=== PATIENT | male | born 1950 | race Caucasian/White ===

== ENCOUNTER 2020-03-02 09:46 | Emergency (ER) | payer MEDICARE, OTHER ==
--- NOTE | 2020-03-02 11:24 | EDM.PDOC ---
ED HPI GENERAL MEDICAL PROBLEM - General Chief Complaint: Lower Extremity Injury/Pain Stated Complaint: AFTER KNEE SURGERY ISSUES Time Seen by Provider: 03/02/20 11:15 Source of Information: Reports: Patient History Limitations: Reports: No Limitations - History of Present Illness INITIAL COMMENTS - FREE TEXT/NARRATIVE: This 69 yo male patient reports to the emergency department due to drainage and pain from his right knee. The patient had a knee replacement surgery on 02/26/[address] Chandler with [facility] in [place]. The patient reports the day after surgery, he noticed some drainage to his right knee. The dressing was replaced in the hospital, but after physical therapy the patient noticed an area of bleeding. The patient reports the dressing has been getting more saturated. The patient reports he has also noticed some redness to the knee and increased pain to the area. The patient did have a follow-up appointment scheduled in [place] today, but due to the weather, the patient came to the ED. The patient reports he did have a staff infection in his left knee after he had a scope previously. Onset: Gradual Duration: Day(s): Location: Reports: Lower Extremity, Right Quality: Reports: Ache, Dull Severity: Moderate Improves with: Reports: None Worsens with: Reports: None Context: Reports: Other Associated Symptoms: Reports: No Other Symptoms Right Pain Score (Numeric/FACES): 6 Review of Systems - Review of Systems Review Of Systems: Comprehensive ROS is negative, except as noted in HPI. ED EXAM, GENERAL - Physical Exam Exam: See Below Exam Limited By: No Limitations General Appearance: Alert, WD/WN, Moderate Distress Eye Exam: Bilateral Eye: EOMI, Normal Inspection, PERRL Ears: Normal External Exam, Normal Canal, Hearing Grossly Normal, Normal TMs Nose: Normal Inspection, Normal Mucosa, No Blood Throat/Mouth: Normal Inspection, Normal Lips, Normal Teeth, Normal Gums, Normal Oropharynx, Normal Voice, No Airway Compromise Head: Atraumatic, Normocephalic Neck: Normal Inspection, Supple, Non-Tender, Full Range of Motion Respiratory/Chest: No Respiratory Distress, Lungs Clear, Normal Breath Sounds, No Accessory Muscle Use, Chest Non-Tender Cardiovascular: Normal Peripheral Pulses, Regular Rate, Rhythm, No Edema, No Gallop, No JVD, No Murmur, No Rub GI/Abdominal: Normal Bowel Sounds, Soft, Non-Tender, No Organomegaly, No Distention, No Abnormal Bruit, No Mass (Male) Exam: Deferred Rectal (Males) Exam: Deferred Back Exam: Normal Inspection, Full Range of Motion, NT Extremities: Leg Pain (Right knee (post op) ) Neurological: Alert, Oriented, CN II-XII Intact, Normal Cognition, Normal Gait, Normal Reflexes, No Motor/Sensory Deficits Psychiatric: Normal Affect, Normal Mood Skin Exam: Warm, Dry, Wound/Incision (Wound appears to be healing well with no current drainage. ) Course - Vital Signs Last Recorded V/S: Last Vital Signs Temp 35.6 C L 03/02/20 10:25 Pulse 82 03/02/20 10:25 Resp 14 03/02/20 10:25 BP 153/78 H 03/02/20 10:25 Pulse Ox 98 03/02/20 10:25 - Orders/Labs/Meds Orders: Active Orders 24 hr Category Date Time Status CBC WITH AUTO DIFF [HEME] Stat Lab 03/02/20 11:16 Ordered COMPREHENSIVE METABOLIC PN,CMP [CHEM] Stat Lab 03/02/20 11:16 Ordered CULTURE BLOOD [BC] Stat Lab 03/02/20 11:16 Ordered CULTURE BLOOD [BC] Stat Lab 03/02/20 11:16 Ordered LACTIC ACID [CHEM] Stat Lab 03/02/20 11:16 Ordered Blood Culture x2 Reflex Set [OM.PC] Stat Oth 03/02/20 11:16 Ordered Departure - Departure Time of Disposition: 12:30 Disposition: Home, Self-Care 01 Condition: Fair Clinical Impression: Postoperative pain of right knee - Discharge Information *PRESCRIPTION DRUG MONITORING PROGRAM REVIEWED*: Not Applicable *COPY OF PRESCRIPTION DRUG MONITORING REPORT IN PATIENT LESLIE: Not Applicable Care Plan Goals: The patient and his were advised of the examination and lab results during the visit. The wound dressing was changed during the visit. The patient was encouraged to follow-up with Dr. Chandler for continued evaluation and management. If the patient has any additional symptoms or concerns, the patient should either return to the emergency department or visit his primary care facility. Sepsis Event Note (ED) - Evaluation Sepsis Screening Result: No Definite Risk - Focused Exam Vital Signs: Vital Signs Temp Pulse Resp BP Pulse Ox 03/02/20 10:25 35.6 C L 82 14 153/78 H 98 - My Orders Last 24 Hours: My Active Orders 03/02/20 11:16 CBC WITH AUTO DIFF [HEME] Stat COMPREHENSIVE METABOLIC PN,CMP [CHEM] Stat CULTURE BLOOD [BC] Stat CULTURE BLOOD [BC] Stat LACTIC ACID [CHEM] Stat Blood Culture x2 Reflex Set [OM.PC] Stat - Assessment/Plan Last 24 Hours: My Active Orders 03/02/20 11:16 CBC WITH AUTO DIFF [HEME] Stat COMPREHENSIVE METABOLIC PN,CMP [CHEM] Stat CULTURE BLOOD [BC] Stat CULTURE BLOOD [BC] Stat LACTIC ACID [CHEM] Stat Blood Culture x2 Reflex Set [OM.PC] Stat
[2020-03-02 12:11] LABS: ANION GAP 11.1 mEq/L (7-13); CHLORIDE,CL 104 mmol/L (98-107); SODIUM,NA 140 mmol/L (136-145)
== END 2020-03-02 12:40 | disposition home or self-care (01) ==
LOC: DL.ED 09:46
DX: G89.18 Other acute postprocedural pain (principal); M25.561 Pain in right knee
CPT/HCPCS: 36415; 80053; 83605; 85025; 87040; 99282; 99283